=== PATIENT | female | born 1985 | race Caucasian/White ===

== ENCOUNTER 2017-03-21 15:40 | Emergency (ER) | payer BC ==
--- NOTE | 2017-03-21 15:46 | UC ---
Throat Pain/Nasal Jameson HPI - HPI Summary HPI Summary: 31 year old female presents with complains of severe sinus congestion and ear fullness. - History of Current Complaint Stated Complaint: SINUSES,CHEST JAMESON Time Seen by Provider: 03/21/17 15:46 Hx Obtained From: Patient Hx Last Menstrual Period: 04/11/16 Onset/Duration: Sudden Onset Severity: Moderate Pain Scale Used: 0-10 Numeric - 7 - Allergies/Home Medications Allergies/Adverse Reactions: Allergies Allergy/AdvReac Type Severity Reaction Status Date / Time No Known Allergies Allergy Verified 03/21/17 15:52 Home Medications: Home Medications [id number]-[id number] [Nyquil Severe Cold/Flu 5-6.25-10-325 mg/15Ml] 1 liq PO BEDTIME 03/21/17 [History Confirmed 03/21/17] PMH/Surg Hx/FS Hx/Imm Hx Previously Healthy: Yes - Surgical History Surgical History: Yes Surgery Procedure, Year, and Place: LEFT OVARIAN CYSTECTOMY 1997. [place] - Family History Known Family History: Positive: Unknown - Social History Alcohol Use: None Substance Use Type: None Smoking Status (MU): Heavy Every Day Tobacco Smoker Type: Cigarettes Amount Used/How Often: 1/2 PPD Household Exposure Type: Cigarettes Review of Systems Constitutional: Negative Skin: Negative Eyes: Negative ENT: Ear Ache, Sinus Congestion, Sinus Pain/Tenderness Respiratory: Negative Cardiovascular: Negative Gastrointestinal: Negative Genitourinary: Negative Motor: Negative Neurovascular: Negative Musculoskeletal: Negative Neurological: Negative Psychological: Negative Is Patient Immunocompromised?: Yes All Other Systems Reviewed And Are Negative: Yes Physical Exam Triage Information Reviewed: Yes Vital Signs Reviewed: Yes Eye Exam: Normal ENT: Positive: Pharyngeal erythema, Nasal congestion, Nasal drainage, Sinus tenderness Dental Exam: Normal Neck exam: Normal Neck: Positive: 1 Respiratory Exam: Normal Cardiovascular Exam: Normal Abdominal Exam: Normal Musculoskeletal Exam: Normal Neurological Exam: Normal Psychological Exam: Normal Skin Exam: Normal Throat Pain/Nasal Course/Dx - Differential Dx/Diagnosis Provider Diagnoses: sinusitis. cough Discharge - Discharge Plan Condition: Stable Disposition: HOME Prescriptions: Amoxicillin/Clavulanate TAB* [Augmentin TAB 875*] 875 mg PO BID #20 tab Guaifenesin-Codeine [Cheratussin AC] 1 syp PO Q8H PRN #120 ml MDD 15 ml PRN Reason: Cough LoraTADine TAB(NF) [Claritin 10 MG TAB(NF)] 10 mg PO DAILY #30 tab Magic M W2 Polo/Maal/Nyst/Lido* 5 ml SWISH SPIT QID PRN #120 ml PRN Reason: Pain Methylprednisolone [Medrol Dosepak 4 MG*] 4 mg PO .SEE ANDRES INSTRUCTION #21 tab Patient Education Materials: Sinusitis (ED) Referrals: Dottie Clark NP [Primary Care Provider] -
== END 2017-03-21 16:14 | disposition home or self-care (01) ==
LOC: UCCORT 15:40
DX: J32.9 Chronic sinusitis, unspecified (principal); R05 Cough; F17.210 Nicotine dependence, cigarettes, uncomplicated
CPT/HCPCS: 99212; G0463

== ENCOUNTER 2017-07-09 20:33 | Emergency (ER) | payer BC, OTHER ==
[2017-07-09 20:53] VITALS: BP 126/71
--- NOTE | 2017-07-09 21:03 | UC ---
Knee Pain HPI - HPI Summary HPI Summary: 32 y/o female presents to the urgent care c/o left knee mild intermittent pain for the past 2 weeks. However this morning she felt a pop and the back of left knee and then she noticed a bruise. At this moment she denies pain. She has not taking anything to alleviate symptoms. She states it feels like a pressure. She also states she started to left weights about 3 weeks ago at the [facility]. Pt denies numbness or tingling over the left extremity, SOB, palpitation ,chest pain, abdominal pain, N/V/D. LMP: 06/20/2017 w/ B/L tubal ligation. Pt has the patch to quit smoking. - History of Current Complaint Chief Complaint: UCLowerExtremity Stated Complaint: LEFT LEG INJURY Time Seen by Provider: 07/09/17 20:53 Hx Obtained From: Patient Hx Last Menstrual Period: 06/20/17 ?: No Onset/Duration: Gradual Onset, Lasting Weeks - 2 weeks, Still Present, Worse Since - this morning Severity Initially: Mild Severity Currently: Mild Pain Intensity: 1 - pressure like Pain Scale Used: 0-10 Numeric Aggravating Factor(s): Nothing Alleviating Factor(s): Rest Associated Signs And Symptoms: Positive: Bruising - posterior back of left knee. Negative: Swelling, Redness, Fever, Weakness, Numbness, Tingling Able to Bear Weight: Yes - Risk Factors Septic Arthritis Risk Factor: Negative Gout Risk Factor: Negative - Allergies/Home Medications Allergies/Adverse Reactions: Allergies Allergy/AdvReac Type Severity Reaction Status Date / Time No Known Allergies Allergy Verified 03/21/17 15:52 Home Medications: Home Medications Citalopram TAB* [Celexa TAB*] 07/09/17 [History] Nicotine [Nicoderm Cq] 07/09/17 [History] PMH/Surg Hx/FS Hx/Imm Hx Previously Healthy: Yes Psychological History: Depression - Surgical History Surgical History: Yes Surgery Procedure, Year, and Place: LEFT OVARIAN CYSTECTOMY 1997. [place] - Family History Known Family History: Positive: Cardiac Disease, Respiratory Disease - COPD - Social History Occupation: Employed Full-time Lives: With Family Alcohol Use: Occasionally Substance Use Type: None Smoking Status (MU): Former Smoker Type: Cigarettes Amount Used/How Often: 1/2 PPD Length of Time of Smoking/Using Tobacco: OFF AND ON FOR 10 YRS Have You Smoked in the Last Year: Yes When Did the Patient Quit Smoking/Using Tobacco: <6 MONTHS Household Exposure Type: Cigarettes Review of Systems Constitutional: Negative Skin: Negative Eyes: Negative ENT: Negative Respiratory: Negative Cardiovascular: Negative Gastrointestinal: Negative Genitourinary: Negative Motor: Negative Musculoskeletal: Negative, Other: - posterior back of left knee pain and bruising Neurological: Negative Psychological: Negative Is Patient Immunocompromised?: No All Other Systems Reviewed And Are Negative: Yes Physical Exam Triage Information Reviewed: Yes Vital Signs: Initial Vital Signs Temp 98.8 F 07/09/17 20:48 Pulse 75 07/09/17 20:48 Resp 16 07/09/17 20:48 BP 126/71 07/09/17 20:48 Pulse Ox 100 07/09/17 20:48 - Additional Comments Vital Signs Reviewed: Yes General: well developed, well nourished female sitting in the examining table w/ o any apparent distress Eyes: Positive: Conjunctiva Clear - PERRLA, EOMI, fundi grossly normal ENT: Positive: Normal ENT inspection, Hearing grossly normal, Pharynx normal, TMs normal Neck: Positive: Supple, Nontender, No Lymphadenopathy Respiratory: Positive: Chest nontender, Lungs clear, Normal breath sounds, No respiratory distress Cardiovascular: Positive: RRR, No Murmur, Pulses Normal, Brisk Capillary Refill Abdomen Description: Positive: Nontender, No Organomegaly, Soft. Negative: CVA Tenderness (R), CVA Tenderness (L) Bowel Sounds: Positive: Present Musculoskeletal: Positive: Strength Intact, No Edema, Left Knee: Pt is able to bear weight and ambulate w/o limping. No surface trauma, no soft tissue swelling , or obvious effusion. lateral side of posterior left knee w/ mild ecchymosis and bruising about 1.0cm x 0.5cm in size, non tender to palpation.No overlying erythema or warmth. The L knee is without obvious asymmetry or deformity when compared with the R knee. FROM of LF knee No tenderness to palpation of the patella, no effusion or ballottement. No tenderness over the infrapatellar tendon. No tenderness over the medial joint line, No tenderness over the medial or lateral tibial plateaus. No tenderness over the proximal fibular head, No tenderness, fullness or mass of the popliteal fossa. No quadriceps tenderness. No laxity of the ACL. PCL, MCL, or LCL. no collateral ligament laxity to valgus or varus stress. Negative Donell/Drawer sign. Negative Angel. Distal motor and neurovascular status intact. Neurological Exam: Normal Psychological Exam: Normal Skin Exam: Normal Knee Pain Course/Dx - Course Course Of Treatment: 32 y/o female presents to the urgent care c/o left knee mild intermittent pain for the past 2 weeks. However this morning she felt a pop and the back of left knee and then she noticed a bruise. At this moment she denies pain. She has not taking anything to alleviate symptoms. She states it feels like a pressure. She also states she started to left weights about 3 weeks ago at the [facility]. Pt denies numbness or tingling over the left extremity, SOB, palpitations, chest pain, abdominal pain, N/V/D. LMP: 06/20/2017 w/ B/L tubal ligation. Pt has the patch to quit smoking. Hx obtained. Pt w/ mild bruise in the lateral posterior side of left knee about 1.0cm X 0.5cm w/o any left knee tenderness elicited on examination. LF knee X-ray ordered, Impression : No acute osseous injury or swelling observed. At this moment Ultrasound is not available to r/o Gallo cysts or popliteal abnormality. DR Ellis consulted on Pt's symptoms and she recommended Thiago bandage and f/u w/ Othopedic if not improvement of symptoms. Pt's knee immobilized w/ thiago bandage. Advised RICE. Avoid strenuous exercise or standing for long period of time. Rx Naproxen PO for pain. If not improvement of symptoms to f/u with Orthopedic Dr Spain or your PCP in 3 days for further evaluation and treatment. PT understood and agreed with D/C instructions. - Differential Dx/Diagnosis Differential Diagnosis/HQI/PQRI: Abrasion, Contusion, Fracture (Closed), Phlebitis, Sprain, Strain, Tendonitis Provider Diagnoses: 1- Acute posterior left knee pain. 2-left posterior left knee bruise Discharge - Discharge Plan Condition: Stable Disposition: HOME Prescriptions: Naproxen [Naproxen EC 500 MG TAB] 500 mg PO Q8HR PRN #[address] KLEIN Reason: Pain Patient Education Materials: Knee Pain (ED), Tendinitis (ED) Referrals: Momo Spain MD [Medical Doctor] - 3 Days Dottie Clark NP [Primary Care Provider] - 3 Days Additional Instructions: 1-Please take medications as directed to alleviate pain and swelling. 2-Please apply ice, keep your knee immobilized with the thiago bandage 3- Please f/u with Orthopedic Dr Spain or your PCP in 2- 3 days if not improvement of symptoms for further evaluation and treatment.
--- NOTE | 2017-07-09 21:20 | RAD ---
HISTORY: Left knee pain COMPARISONS: None VIEWS: 4, Frontal, lateral, axial, and oblique views of the left knee FINDINGS: BONE DENSITY: Normal. BONES: There is no displaced fracture. JOINTS: There is no arthropathy. ALIGNMENT: There is no dislocation. SOFT TISSUES: Unremarkable. OTHER FINDINGS: None. IMPRESSION: NO ACUTE OSSEOUS INJURY. IF SYMPTOMS PERSIST, RECOMMEND REPEAT IMAGING.
== END 2017-07-09 21:42 | disposition home or self-care (01) ==
LOC: UCCORT 20:33
DX: M25.562 Pain in left knee (principal); S80.02XA Contusion of left knee, initial encounter; F32.9 Major depressive disorder, single episode, unspecified; Z87.891 Personal history of nicotine dependence
CPT/HCPCS: 99212; G0463

== ENCOUNTER 2019-06-14 07:32 | Emergency (ER) | payer OTHER ==
--- OUTSIDE RECORDS SUMMARY | 2019-06-14 07:45 | XMS REPORT | Continuity of Care Document ---
:1985 External Reference #:[id number] Author Name Clement Clark FNP Address [address] [place] [id number] Care Team Providers Name Role Phone Hector Toledo RPAC - Physician Care Team Information Historiographer Digital Project Manager Clement Clark NP - Nurse Care Team Information Historiographer [phone] Practitioner Problems Active Problems Provider Date Postconcussion syndrome Clement Clark FNP Onset: 12/16/2015 Cyst of ovary Ivanna Crawford [facility] Onset: 01/03/2013 Abdominal pain Patrick Dominique MD Onset: 06/09/2016 Nausea and vomiting Patrick Dominique MD Onset: 06/09/2016 Flatulence, eructation and gas pain Patrick Dominique MD Onset: 06/09/2016 Gastroesophageal reflux disease Patrick Dominique MD Onset: 06/09/2016 Chronic nonalcoholic liver disease Patrick Dominique MD Onset: 07/21/2016 Gastroduodenitis Patrick Dominique MD Onset: 07/21/2016 Vitamin D deficiency Patrick Dominique MD Onset: 07/21/2016 Social History Type Date Description Comments Sex Unknown Tobacco Use Start: Unknown End: Quit 2009 Unknown ETOH Use Occasionally consumes alcohol Recreational Drug Use Denies Drug Use Tobacco Use Start: Unknown Light tobacco smoker (10 or fewer cigarettes/day) Smoking Status Reviewed: 04/23/19 Light tobacco smoker (10 or fewer cigarettes/day) Enjoy Exercising Enjoys exercising Tattoo/Piercing Pierced ears Tattoo/Piercing Tattoo BACK, STOMACH Allergies, Adverse Reactions, Alerts Description No Known Drug Allergies Medications Active Medications SIG Qnty Indications Ordering Date Provider Cyclobenzaprine HCL 1 tab by mouth 90tabs M54.16 Clune, 04/23/2019 10mg every 8 hours as Jenniferleigh, Tablets needed muscle [employer] spasms Effexor XR 1 tab by mouth 60caps M54.16 Clune, 04/23/2019 75mg Caps ER every day x 7 Jenniferleigh, 24HR days then [employer] increase to 2 tabs by mouth every day History Medications Toilet Seat Elevator use as directed. 1units M53.2x7 Akila Calderon, 11/13 - 04/23/2019 Misc Cyclobenzaprine HCL take 1 tablet by 90tabs M53.2x7 Akila Calderon, 2018 - 5mg mouth 3 times 04/23/2019 Tablets per day as needed for muscle spasm Immunizations CPT Code Status Date Vaccine Lot # [id number] Given 04/23/2019 Influenza Virus Vaccine, Quadrivalent, 36 Mos+, [id number] Given 09/13/2017 Tdap injection [id number] Given 08/26/1999 Hepatitis B Vaccine, Adolescent/High Risk Dosage 61290 Given 08/26/1999 Hepatitis B Vaccine Pediatric/Adolescent 26076 Given 03/12/1999 Hepatitis B Vaccine, Adolescent/High Risk Infant Dosage 82251 Given 02/09/1999 Hepatitis B Vaccine, Adolescent/High Risk Infant Dosage 49538 Given 02/09/1999 Tetnus Injection 58226 Given 02/09/1999 MMR Vaccine, Live, For Subcutaneous Use Vital Signs Date Vital Result Comment 04/23/2019 1:06pm BP Systolic 134 mmHg BP Diastolic 95 mmHg Body Temperature 98.1 F Heart Rate 103 /min Respiratory Rate 18 /min Height 66 inches 5'6" Weight 167.12 lb BMI (Body Mass Index) 27.0 kg/m2 BSA (Body Surface Area) 1.85 m2 [place] body weight in kilograms 59 kg O2 % BldC Oximetry 96 % Ra 11/13/2018 8:12am BP Systolic Sitting Left Arm 124 mmHg BP Diastolic Sitting Left Arm 72 mmHg Heart Rate 88 /min Respiratory Rate 18 /min Height 66 inches 5'6" Weight 164.00 lb BMI (Body Mass Index) 26.5 kg/m2 BSA (Body Surface Area) 1.84 m2 [place] body weight in kilograms 59 kg Results Description No Information Available Procedures Date Code Description Status 04/23/2019 34147 Brief Emotional/Behav Assessment W/ Scoring Doc Per Completed Standard Inst 05/06/2008 21600899 Colonoscopy Completed Medical Devices Description No Information Available Encounters Type Date Location Provider Dx Diagnosis Office Visit 04/23/2019 [facility] Eduardo, M54.16 Radiculopathy, 1:00p [address] Jenniferconnor, lumbar region [facility] F32.89 Other specified depressive episodes G89.4 Chronic pain syndrome Office Visit 11/13/2018 8:00a [facility] Akilah M53.2x7 Spinal Medicine Caspar RAY Cantu instabilities, RD lumbosacral region M54.16 Radiculopathy, lumbar region K59.00 Constipation, unspecified Assessments Date Code Description Provider 04/23/2019 M54.16 Radiculopathy, lumbar region Clement Clark, [employer] 04/23/2019 F32.89 Other specified depressive episodes Clement Clark FNP 04/23/2019 G89.4 Chronic pain syndrome Clement Clark FNP 11/13/2018 M53.2x7 Spinal instabilities, lumbosacral region Alondra Isbell PA 11/13/2018 M54.16 Radiculopathy, lumbar region Alondra Isbell PA 11/13/2018 K59.00 Constipation, unspecified Alondra Isbell PA Plan of Treatment Future Appointment(s):05/08/2019 11:45 am - Clement Clark FNP at [facility] RD07/21/2016 - Emory Aguilar M.D.R10.9 Unspecified abdominal painNew Medication:Dicyclomine HCL 10 mg - 1 cap by mouth three times a day as neededComments:Unclear the prosthesis at play but clearly do not favor a surgical intervention at this time. Discussed with Maggie at length. Functional Status Functional Condition Comment Date Status Glasses Active Mental Status Description No Information Available Referrals Description No Information Available
[2019-06-14 07:50] VITALS: BP 111/90
--- NOTE | 2019-06-14 08:04 | UC ---
General HPI - HPI Summary HPI Summary: States her left eye has been watery for several weeks, now it is barely draining and her cheek is red and painful. She was seen at the eye doctor a few weeks ago and had no issues. No fevers. No other systemic s/s. States she had a similar issue several years ago but not this bad. Meds; Reviewed - History of Current Complaint Chief Complaint: UCEye Stated Complaint: EYE ISSUES Time Seen by Provider: 06/14/19 07:51 Hx Last Menstrual Period: 06/20/17 Pain Intensity: 7 - Allergy/Home Medications Allergies/Adverse Reactions: Allergies Allergy/AdvReac Type Severity Reaction Status Date / Time No Known Allergies Allergy Verified 03/21/17 15:52 Home Medications: Home Medications Ibuprofen TAB* [Motrin TAB* 400 MG] 400 mg PO Q6H PRN 06/14/19 [History Confirmed 06/14/19] PMH/Surg Hx/FS Hx/Imm Hx Previously Healthy: Yes - Surgical History Surgical History: Yes Surgery Procedure, Year, and Place: LEFT OVARIAN CYSTECTOMY 1997. [place]. choly. sacrum repair - Family History Known Family History: Positive: Unknown, Cardiac Disease, Respiratory Disease - COPD - Social History Alcohol Use: Occasionally Substance Use Type: None Smoking Status (MU): Former Smoker Type: Cigarettes Amount Used/How Often: 1/2 PPD Length of Time of Smoking/Using Tobacco: OFF AND ON FOR 10 YRS Have You Smoked in the Last Year: Yes When Did the Patient Quit Smoking/Using Tobacco: <6 MONTHS Household Exposure Type: Cigarettes Review of Systems All Other Systems Reviewed And Are Negative: Yes Eyes: Positive: Drainage Physical Exam Triage Information Reviewed: Yes Appearance: Well-Appearing Vital Signs: Initial Vital Signs Temp 98.2 F 06/14/19 07:48 Pulse 98 06/14/19 07:48 Resp 16 06/14/19 07:48 BP 111/90 06/14/19 07:48 Pulse Ox 100 06/14/19 07:48 Vital Signs Reviewed: Yes Eyes: Positive: Conjunctiva Clear, Other: ENT: Positive: Normal ENT inspection, Sinus tenderness, Other - erythema and sinus tenderness under left eye over left maxilla. mild edema as well Neck: Positive: Supple, Nontender Respiratory: Positive: Lungs clear Cardiovascular: Positive: RRR, No Murmur Course/Dx - Course Course Of Treatment: This is a 34 yr old with left eye pain and maxilla tenderness Suspect nasolacrimal duct issue now with sinusitis/cellulitis Start Augmentin as prescribed Continue nasal [place] If symptoms persist or worsen, recommend follow up with PCP or return to urgent care May need to see ENT if symptoms recur - Diagnoses Provider Diagnosis: Sinusitis Discharge ED - Sign-Out/Discharge Documenting (check all that apply): Patient Departure All imaging exams completed and their final reports reviewed: No Studies - Discharge Plan Condition: Good Disposition: HOME Prescriptions: Amoxicillin/Clavulanate TAB* [Augmentin TAB 875*] 875 mg PO BID #20 tab Patient Education Materials: Sinusitis (ED) Referrals: Dottie Clark NP [Primary Care Provider] - Additional Instructions: Start Augmentin as prescribed Continue nasal [place] If symptoms persist or worsen, recommend follow up with PCP or return to urgent care May need to see ENT if symptoms recur - Billing Disposition and Condition Condition: GOOD Disposition: Home
== END 2019-06-14 08:08 | disposition home or self-care (01) ==
LOC: UCCORT 07:32
DX: J32.9 Chronic sinusitis, unspecified (principal); Z87.891 Personal history of nicotine dependence
CPT/HCPCS: 99212; G0463